=== PATIENT | female | born 1990 | race Caucasian/White ===

== ENCOUNTER 2019-11-01 07:38 | Outpatient (CLI) | payer OTHER | END 2019-11-01 07:42 | disposition home or self-care (01) | LOC: RAD 07:38 → RX STUDY 09:45 | PROVIDERS: ATTEND Obstetrics & Gynecology Maternal & Fetal Medicine | DX: Q51.818 Other congenital malformations of uterus (principal); Q51.20 Other doubling of uterus, unspecified; Q62.5 Duplication of ureter | CPT/HCPCS: 72195 ==

== ENCOUNTER 2019-11-24 07:15 | Outpatient (CLI) | payer OTHER | END 2019-11-24 07:29 | disposition home or self-care (01) | LOC: RAD 07:15 | PROVIDERS: ATTEND Specialist | DX: R05 Cough (principal) ==

== ENCOUNTER 2020-07-26 11:35 | Outpatient (CLI) | payer OTHER | END 2020-07-26 14:43 | disposition home or self-care (01) | LOC: NST 11:35 | PROVIDERS: ATTEND Obstetrics & Gynecology Maternal & Fetal Medicine | DX: Z34.03 Encounter for supervision of normal first pregnancy, third trimester (principal) ==

== ENCOUNTER 2020-09-12 12:45 | Inpatient (IN) | payer OTHER ==
[~2020-09-12] VITALS: Ht 177.8 cm; Wt 78.9 kg
[2020-10-09] MEDS ORDERED: PRENATAL TABLE1 EAC1 PO (04:58)
== END 2020-10-11 11:34 | disposition home or self-care (01) | DRG 807 ==
LOC: SURH 10-03 12:45 → LDR 10-09 00:53 → SURG-SUITE 10-09 00:53
PROVIDERS: ADMIT Obstetrics & Gynecology Maternal & Fetal Medicine; ATTEND Obstetrics & Gynecology Maternal & Fetal Medicine
PROC: 10E0XZZ Delivery of Products of Conception, External Approach (ICD-10-PCS; principal; 2020-10-09)
PROC: 0W8NXZZ Division of Female Perineum, External Approach (ICD-10-PCS; 2020-10-09)
PROC: 4A1HXFZ Monitoring of Products of Conception, Cardiac Rhythm, External Approach (ICD-10-PCS; 2020-10-09)
DX: O80 Encounter for full-term uncomplicated delivery (principal); Z37.0 Single live birth; Z3A.40 40 weeks gestation of pregnancy

== ENCOUNTER → 2020-09-18 | Outpatient (CLI) | payer OTHER ==
[~2020-09-18] MED LIST: PRENATAL TABLE1 EAC1 PO
== END | disposition home or self-care (01) ==
LOC: NST 18:21
PROVIDERS: ATTEND Obstetrics & Gynecology Maternal & Fetal Medicine
DX: Z34.83 Encounter for supervision of other normal pregnancy, third trimester (principal)

== ENCOUNTER → 2020-09-25 | Outpatient (CLI) | payer OTHER | END | disposition home or self-care (01) | LOC: NST 19:10 | PROVIDERS: ATTEND Obstetrics & Gynecology Maternal & Fetal Medicine | DX: Z34.83 Encounter for supervision of other normal pregnancy, third trimester (principal) ==

== ENCOUNTER 2020-10-02 17:41 | Outpatient (CLI) | payer OTHER | END 2020-10-02 19:35 | disposition home or self-care (01) | LOC: NST 17:41 | PROVIDERS: ATTEND Obstetrics & Gynecology Maternal & Fetal Medicine | DX: O48.0 Post-term pregnancy (principal) ==

== ENCOUNTER 2020-10-04 17:26 | Outpatient (CLI) | payer OTHER | END 2020-10-04 19:35 | disposition home or self-care (01) | LOC: NST 17:26 | PROVIDERS: ATTEND Obstetrics & Gynecology Maternal & Fetal Medicine | DX: Z34.83 Encounter for supervision of other normal pregnancy, third trimester (principal) ==

== ENCOUNTER 2020-10-07 09:14 | Outpatient (CLI) | payer OTHER | END 2020-10-07 11:56 | disposition home or self-care (01) | LOC: NST 09:14 | PROVIDERS: ATTEND Obstetrics & Gynecology Maternal & Fetal Medicine | DX: Z34.83 Encounter for supervision of other normal pregnancy, third trimester (principal) ==

== ENCOUNTER 2022-03-27 10:10 | Day surgery (SDC) | payer OTHER | END 2022-03-27 21:50 | disposition home or self-care (01) | LOC: CIR.AMB 10:10 | PROVIDERS: ATTEND Obstetrics & Gynecology Maternal & Fetal Medicine | DX: O00.101 Right tubal pregnancy without intrauterine pregnancy (principal); R10.9 Unspecified abdominal pain; Z20.822 Contact with and (suspected) exposure to COVID-19; Z91.018 Allergy to other foods ==

== ENCOUNTER 2022-07-02 13:17 | Day surgery (SDC) | payer OTHER | END 2022-07-02 20:45 | disposition home or self-care (01) | LOC: CIR.AMB 13:17 | PROVIDERS: ATTEND Obstetrics & Gynecology Maternal & Fetal Medicine | DX: O02.1 Missed abortion (principal); O72.2 Delayed and secondary postpartum hemorrhage; Z20.822 Contact with and (suspected) exposure to COVID-19; Z91.018 Allergy to other foods ==

== ENCOUNTER 2023-05-30 12:46 | Inpatient (IN) | payer OTHER ==
[~2023-05-30] VITALS: Ht 177.8 cm; Wt 80.3 kg
[2023-06-05] MEDS ORDERED: OXYTOCIN 500 ML IV ONE (11:45)
[2023-06-05] MEDS ORDERED: MORPHINE SULFATE 4 MG/ML VIAL IV PRN (11:45)
[2023-06-05 12:20] LABS: HEMATOCRIT 38.3 % (36.0-45.00); HEMOGLOBIN 13.8 g/dL (12.0-15.00); MEAN CELL VOLUME 100.1 fL (80.00-100.00); MEAN CORPUSCULAR HEMOGLOBIN 36.1 pg (27.00-32.0); MEAN CORPUSCULAR HGB CONC 36.1 g/dl (32.0-36.0); PLATELET COUNT 211 K/uL (150-450); RED BLOOD COUNT 3.83 M/uL (4.00-6.00); RED CELL DISTRIBUTION WIDTH 13.9 % (11.5-14.5)
[2023-06-05] MEDS ORDERED: VALTREX1000 MG PO (12:27)
[2023-06-05 12:40] LABS: PARTIAL THROMBOPLASTIN TIME 29.2 SECONDS (22.0-34.0); PROTHROMBIN TIME 10.5 SECONDS (9.0-11.5)
[2023-06-05 12:46] LABS: ALBUMIN 2.7 gm/dL (3.4-5.0); BILIRUBIN TOTAL 0.5 mg/dL (0.3-1.2); CALCIUM 8.8 mg/dL (8.5-10.1); CREATININE SERUM 0.65 mg/dL (0.55-1.02); GFR 105.63; POTASSIUM 4.44 mEq/L (3.5-5.1); TOTAL PROTEIN 5.7 gm/dL (6.4-8.2)
[2023-06-05] MEDS ORDERED: CHLORHEXIDINE GLUCONATE 120 ML BOTTLE TOP ONE (15:30)
[2023-06-05] MEDS ORDERED: OXYTOCIN 20 UNITS/1000ML RL PIGGYBAG IV ONE (15:32)
[2023-06-05] MEDS ORDERED: ERYTHROMYCIN BASE 1 GM TUBE OP ONE (15:32)
[2023-06-05] MEDS ORDERED: CHLORHEXIDINE GLUCONATE 120 ML BOTTLE TP SCH (16:30)
[2023-06-05] MEDS ORDERED: IBUprofen 400 MG TABLET PO PRN (16:30)
[2023-06-05] MEDS ORDERED: ERYTHROMYCIN BASE 1 GM TUBE OP SCH (16:30)
[2023-06-05] MEDS ORDERED: OXYTOCIN 1,000 ML IV ONE (16:30)
[2023-06-05] MEDS ORDERED: LIDOCAINE HCL 1% 200MG/20ML VIAL IJ SCH (16:30)
[2023-06-05] MEDS ORDERED: METHYLERGONOVINE MALEATE 0.2 MG/ML AMPUL IM ONE (19:15)
[2023-06-05] MEDS ORDERED: ACETAMINOPHEN 500 MG GEL..CAP PO ONE (19:30)
[2023-06-05] MEDS ORDERED: SENNA/DOCUSATE SODIUM 1 TAB TABLET PO SCH (21:00)
[2023-06-06 07:52] LABS: MEAN CELL VOLUME 99.6 fL (80.00-100.00); MEAN CORPUSCULAR HEMOGLOBIN 36.1 pg (27.00-32.0); MEAN CORPUSCULAR HGB CONC 36.2 g/dl (32.0-36.0); PLATELET COUNT 171 K/uL (150-450); RED BLOOD COUNT 3.61 M/uL (4.00-6.00); RED CELL DISTRIBUTION WIDTH 13.7 % (11.5-14.5)
[2023-06-06] MEDS ORDERED: FF) RHO(D) IMMUNE GLOBULIN (POM) IM ONE (11:45)
[2023-06-07] MEDS ORDERED: FF) RHO(D) IMMUNE GLOBULIN (POM) IM ONE (08:45)
== END 2023-06-07 14:16 | disposition home or self-care (01) | DRG 807 ==
LOC: OB/GYN 12:46 → LDR 06-05 11:30 → OB/GYN 06-05 11:30 → LDR 06-05 14:09 → OB/GYN 06-05 17:07
PROVIDERS: Obstetrics & Gynecology Gynecology; ADMIT Obstetrics & Gynecology Maternal & Fetal Medicine; ATTEND Obstetrics & Gynecology Maternal & Fetal Medicine
PROC: 10E0XZZ Delivery of Products of Conception, External Approach (ICD-10-PCS; principal; 2023-06-05)
PROC: 0UQMXZZ Repair Vulva, External Approach (ICD-10-PCS; 2023-06-05)
PROC: 4A1HXCZ Monitoring of Products of Conception, Cardiac Rate, External Approach (ICD-10-PCS; 2023-06-05)
DX: O70.0 First degree perineal laceration during delivery (principal); O66.0 Obstructed labor due to shoulder dystocia; Z37.0 Single live birth; Z3A.39 39 weeks gestation of pregnancy; Z20.822 Contact with and (suspected) exposure to COVID-19

== ENCOUNTER 2023-06-02 09:59 | Outpatient (CLI) | payer OTHER | END 2023-06-02 12:44 | disposition home or self-care (01) | LOC: NST 09:59 | PROVIDERS: ATTEND Obstetrics & Gynecology Maternal & Fetal Medicine | DX: Z34.83 Encounter for supervision of other normal pregnancy, third trimester (principal) ==

== ENCOUNTER 2024-11-29 09:21 | Emergency (ER) | payer OTHER ==
[~2024-11-29] VITALS: Ht 172.7 cm; Wt 65.8 kg
[~2024-11-29 09:21] MED LIST changes: +VALTREX1000 MG PO
[2024-11-29 09:57] VITALS: BP 115/57; O2SAT 99
[2024-11-29] MEDS ORDERED: ONDANSETRON HCL 2 MG/ML VIAL IV STA (10:04)
[2024-11-29] MEDS ORDERED: 0.9 % SODIUM CHLORIDE 1,000 ML IV STA (10:04)
[2024-11-29] MEDS ORDERED: ONDANSETRON HCL 2 MG/ML VIAL ONE (10:07)
[2024-11-29 10:39] LABS: BASO % 0.4 % (0.1-1.2); EOS # 0.02 (0.04-0.54); EOS % 0.2 % (0.7-7.0); LYMPH # 0.67 (1.18-3.74); LYMPH % 8.3 % (19.3-53.1); MEAN PLATELET VOLUME 8.60 fl (9.4-12.4); MONO # 0.25 (0.24-0.82); MONO % 3.1 % (4.7-12.5); NEUT # 7.11 (1.56-6.13); NEUT % 87.6 % (34.0-71.1); RED CELL DISTRIBUTION WIDTH 13.5 % (11.6-14.4)
[2024-11-29 11:15] LABS: BUN CREA RATIO 31.0 (7.0-25.0); CREATININE SERUM 0.36 mg/dL (0.55-1.02); GFR 206.34; GLUCOSE FASTING 95.0 mg/dL (65-100); OSMOLALITY SERUM 280.0 MOSM/KG (275-295)
[2024-11-29 11:20] LABS: HCG QUANTITATIVE 15250.0 mUI/mL (1-3)
[2024-11-29 12:03] LABS: URINE APPEARANCE Clear; URINE BILIRRUBIN Negative (NEGATIVE); URINE BLOOD Negative; URINE COLOR Dark Yellow; URINE GLUCOSE Negative (NEGATIVE); URINE LEUKOCYTE Trace; URINE NITRATE Negative; URINE PROTEIN Negative (NEGATIVE); URINE UROBILINOGEN 1.0 E.U./dl
[2024-11-29 12:07] LABS: URINE BACTERIA 2128.5 uL (0.0-1933); URINE EPITHELIAL CELLS 34.7 uL (0.0-38.8); URINE RBC 3.9 uL (0.0-20.8); URINE WBC 35.9 uL (0.0-23.2)
[2024-11-29 12:15] LABS: URINE CAST 0.29 uL (0.0-1.40); URINE KETONE 40 (NEGATIVE)
== END 2024-11-29 14:32 | disposition home or self-care (01) ==
LOC: ER 09:21
PROVIDERS: Emergency Medicine
DX: O99.612 Diseases of the digestive system complicating pregnancy, second trimester (principal); K31.89 Other diseases of stomach and duodenum; Z3A.26 26 weeks gestation of pregnancy; K29.70 Gastritis, unspecified, without bleeding; Z88.8 Allergy status to other drugs, medicaments and biological substances; Z91.018 Allergy to other foods

== ENCOUNTER 2025-01-02 02:40 | Outpatient (CLI) | payer OTHER ==
[2025-01-02 02:10] VITALS: BP 120/76
[2025-01-02] MEDS ORDERED: MORPHINE SULFATE 4 MG/ML CARTRIDGE IV PRN (02:45)
[2025-01-02] MEDS ORDERED: RINGERS SOLUTION,LACTATED 1,000 ML IV SCH (02:45)
[2025-01-02 07:23] VITALS: BP 103/66
[2025-01-02 11:16] VITALS: BP 103/66
== END 2025-01-02 11:16 | disposition home or self-care (01) ==
LOC: OBS/DEL 02:40
PROVIDERS: ATTEND Obstetrics & Gynecology
DX: O26.893 Other specified pregnancy related conditions, third trimester (principal); R10.20 Pelvic and perineal pain unspecified side; Z3A.31 31 weeks gestation of pregnancy

== ENCOUNTER 2025-02-18 10:31 | Inpatient (IN) | payer OTHER ==
[~2025-02-18] VITALS: Ht 177.8 cm; Wt 78.5 kg
[2025-02-23] MEDS ORDERED: PRENATAL TABLE1 EAC1 (05:32)
[2025-02-23] MEDS ORDERED: OMEGA 3 1,0001 EACH (05:33)
[2025-02-23] MEDS ORDERED: VITAMIN C100 MG (05:34)
[2025-02-23 05:35] VITALS: BP 111/56
[2025-02-23] MEDS ORDERED: RINGERS SOLUTION,LACTATED 1,000 ML IV SCH (06:00)
[2025-02-23] MEDS ORDERED: OXYTOCIN 500 ML IV SCH (06:00)
[2025-02-23 06:18] LABS: BASO % 0.4 % (0.1-1.2); EOS # 0.10 (0.04-0.54); EOS % 1.8 % (0.7-7.0); LYMPH # 1.70 (1.18-3.74); LYMPH % 30.1 % (19.3-53.1); MEAN PLATELET VOLUME 8.70 fl (9.4-12.4); MONO # 0.44 (0.24-0.82); MONO % 7.8 % (4.7-12.5); NEUT # 3.36 (1.56-6.13); NEUT % 59.5 % (34.0-71.1); RED CELL DISTRIBUTION WIDTH 14.0 % (11.6-14.4)
[2025-02-23 06:36] LABS: INR 1.04
[2025-02-23 07:54] VITALS: BP 129/72
[2025-02-23 11:30] VITALS: BP 109/68
[2025-02-23] MEDS ORDERED: LIDOCAINE HCL 1% 10ML VIAL ONE (14:15)
[2025-02-23] MEDS ORDERED: ERYTHROMYCIN BASE OPHT 1GM EACH TUBE OP ONE (14:15)
[2025-02-23] MEDS ORDERED: OXYTOCIN 20 UNITS/1000ML RL PIGGYBAG IV ONE (14:15)
[2025-02-23] MEDS ORDERED: CHLORHEXIDINE GLUCONATE 120 ML BOTTLE TOP ONE (14:15)
[2025-02-23] MEDS ORDERED: CHLORHEXIDINE GLUCONATE 120 ML BOTTLE TP SCH (14:45)
[2025-02-23] MEDS ORDERED: OXYTOCIN 1,000 ML IV SCH (14:45)
[2025-02-23 14:46] VITALS: BP 115/63
[2025-02-23 15:16] VITALS: BP 137/78
[2025-02-23 16:07] VITALS: BP 133/79
[2025-02-24 02:19] VITALS: BP 114/71
[2025-02-24 06:56] LABS: BASO % 0.3 % (0.1-1.2); EOS # 0.14 (0.04-0.54); EOS % 1.9 % (0.7-7.0); LYMPH # 1.79 (1.18-3.74); LYMPH % 23.9 % (19.3-53.1); MEAN PLATELET VOLUME 9.10 fl (9.4-12.4); MONO # 0.58 (0.24-0.82); MONO % 7.7 % (4.7-12.5); NEUT # 4.92 (1.56-6.13); NEUT % 65.7 % (34.0-71.1); RED CELL DISTRIBUTION WIDTH 14.5 % (11.6-14.4)
[2025-02-24 09:04] VITALS: BP 108/69
[2025-02-24 13:45] VITALS: BP 109/78
[2025-02-24 17:15] VITALS: BP 100/66
[2025-02-25 01:33] VITALS: BP 104/63
[2025-02-25] MEDS ORDERED: FF) RHO(D) IMMUNE GLOBULIN (POM) IM ONE (08:30)
[2025-02-25 09:09] VITALS: BP 122/78
== END 2025-02-25 12:00 | disposition home or self-care (01) | DRG 807 ==
LOC: LDR 10:31 → OB/GYN 02-23 18:47
PROVIDERS: Obstetrics & Gynecology; ADMIT Obstetrics & Gynecology; ATTEND Obstetrics & Gynecology
PROC: 10E0XZZ Delivery of Products of Conception, External Approach (ICD-10-PCS; principal; 2025-02-23)
PROC: 4A1HXCZ Monitoring of Products of Conception, Cardiac Rate, External Approach (ICD-10-PCS; 2025-02-23)
DX: O80 Encounter for full-term uncomplicated delivery (principal); Z37.0 Single live birth; Z3A.39 39 weeks gestation of pregnancy